=== PATIENT | female | born 1990 | race Caucasian/White ===

== ENCOUNTER 2017-03-29 23:50 | Inpatient (IN) | payer BC ==
[~2017-03-29] VITALS: Ht 154.9 cm; Wt 65.8 kg
[2017-03-30] MEDS ORDERED: LR 1,000 ML IV SCH (00:22)
[2017-03-30] MEDS ORDERED: LR 500 ML IV ONE (00:22)
[2017-03-30] MEDS ORDERED: LR 1,000 ML IV ONE ×2 (00:22→07:15)
[2017-03-30] MEDS ORDERED: OXYTOCIN/NORMAL SALINE 1,000 ML IV SCH (00:22)
[2017-03-30] MEDS ORDERED: NA PHOS,M-B/NA PHOS,DI-BA 118 ML (FLEET ENEMA) RC ONE (00:30)
[2017-03-30] MEDS ORDERED: TERBUTALINE SULFATE 1 MG/ML VIAL SUBCUT ONE (00:30)
[2017-03-30] MEDS ORDERED: NALBUPHINE HCL 10 MG/ML AMP IVP PRN ×2 (00:30→07:15)
[2017-03-30 00:59] LABS: BASOPHILS % (AUTO) 0.3 % (0.0-2.0); EOSINOPHILS # (AUTO) 0.1 K/uL (0.0-0.4); HEMATOCRIT 35.1 % (36-48); HEMOGLOBIN 12.2 g/dL (12.0-16.0); LYMPHOCYTES # (AUTO) 2.5 K/uL (1.0-5.5); LYMPHOCYTES % (AUTO) 27.1 % (20.5-51.5); MEAN CORPUSCULAR HEMOGLOBIN 31 pg (27-31); MEAN CORPUSCULAR HGB CONC 35 % (32-36); MEAN CORPUSCULAR VOLUME 90 fL (79.0-98.0); MONOCYTES # (AUTO) 0.9 K/uL (0.0-1.0); MONOCYTES % (AUTO) 9.6 % (1.7-9.3); NEUTROPHILS # (AUTO) 5.6 K/uL (1.8-7.7); PLATELET COUNT (AUTO) 282 K/uL (130-430); RED CELL DISTRIBUTION WIDTH 14.1 % (9.0-15.0); WHITE BLOOD COUNT (AUTO) 9.1 K/uL (4.8-10.8)
[2017-03-30] MEDS ORDERED: fentaNYL CITRATE/PF 100 MCG/2 ML AMP ONE (05:32)
[2017-03-30] MEDS ORDERED: fentaNYL CITRATE 250 MCG/5 ML AMP ONE (05:34)
[2017-03-30] MEDS ORDERED: FENT2mCg/mL-ROPIVA0.2%/NS EPID 150 ML EP ONE (05:38)
[2017-03-30] MEDS ORDERED: ePHEDrine sulfate 50 MG/ML VIAL IVP PRN (07:15)
[2017-03-30] MEDS ORDERED: KETOROLAC TROMETHAMINE 30 MG VIAL IM PRN (07:15)
[2017-03-30] MEDS ORDERED: ONDANSETRON HCL 4 MG/2 ML VIAL IVP PRN ×2 (07:15)
[2017-03-30] MEDS ORDERED: fentaNYL CITRATE/PF 100 MCG/2 ML AMP IVP PRN (07:15)
[2017-03-30] MEDS ORDERED: DIPHENHYDRAMINE INJ 50 MG/ML VIAL IVP PRN (07:15)
[2017-03-30] MEDS ORDERED: NALOXONE HCL 0.4 MG/ML AMP (NARCAN) IVP PRN (07:15)
[2017-03-30 08:24] VITALS: BP_SYST 102
[2017-03-30] MEDS ORDERED: METHYLERGONOVINE MALEATE 0.2 MG/ML AMP ONE (12:45)
[2017-03-30] MEDS ORDERED: OXYTOCIN/NORMAL SALINE 1,000 ML IV ONE (13:25)
[2017-03-30] MEDS ORDERED: GLYCERIN/WITCH HAZEL (TUCKS PADS) TP PRN (13:30)
[2017-03-30] MEDS ORDERED: SENNOSIDES/DOCUSATE SODIUM 1 TAB TABLET(SENOKOT-S) PO PRN (13:30)
[2017-03-30] MEDS ORDERED: ANUSOL 1 EA SUPP.RECT (PREPARATION H) RC PRN (13:30)
[2017-03-30] MEDS ORDERED: LANOLIN 7 GM OINT. TP PRN (13:30)
[2017-03-30] MEDS ORDERED: DOCUSATE SODIUM 100 MG CAPSULE PO PRN (13:30)
[2017-03-30] MEDS ORDERED: DERMOPLAST SPRAY TP PRN (13:30)
[2017-03-30] MEDS ORDERED: MEASLES,MUMPS&RUBELLA VACC/PF 12500 UNIT/0.5 ML VIAL SUBQ PRN (13:30)
[2017-03-30] MEDS ORDERED: OXYCODONE/ACETAMINOPHEN 5-325 TABLET PO PRN ×2 (13:30)
[2017-03-30] MEDS ORDERED: RHO(D) IMMUNE GLOBULIN/MALTOSE 1500 UNITS/1.3 ML (WINHRO) IM PRN (13:30)
[2017-03-30] MEDS ORDERED: HYDROCORTISONE 0.5%, 28.35 GM TOPICAL CREAM TP PRN (13:30)
[2017-03-30] MEDS ORDERED: ACETAMINOPHEN 325 MG TABLET PO PRN (13:30)
[2017-03-30] MEDS: IBUPROFEN 600 MG TABLET PO SCH ×2 (17:51→23:54)
[2017-03-31] MEDS: IBUPROFEN 600 MG TABLET PO SCH ×2 (06:01→12:00)
[2017-03-31 07:57] LABS: HEMATOCRIT 32.5 % (36-48); HEMOGLOBIN 10.5 g/dL (12.0-16.0)
== END 2017-03-31 13:25 | disposition home or self-care (01) | DRG 775 ==
LOC: SPU 23:50
PROVIDERS: ADMIT Obstetrics & Gynecology; ATTEND Obstetrics & Gynecology
PROC: 3E0234Z Introduction of Serum, Toxoid and Vaccine into Muscle, Percutaneous Approach (ICD-10-PCS; principal; 2017-03-30)
PROC: 10E0XZZ Delivery of Products of Conception, External Approach (ICD-10-PCS; 2017-03-30)
PROC: 4A0HXCZ Measurement of Products of Conception, Cardiac Rate, External Approach (ICD-10-PCS; 2017-03-30)
PROC: 3E0S3CZ (ICD-10-PCS; 2017-03-30)
PROC: 00HU33Z Insertion of Infusion Device into Spinal Canal, Percutaneous Approach (ICD-10-PCS; 2017-03-30)
DX: O69.81X0 Labor and delivery complicated by cord around neck, without compression, not applicable or unspecified (principal); O77.0 Labor and delivery complicated by meconium in amniotic fluid; Z3A.40 40 weeks gestation of pregnancy; Z37.0 Single live birth; Z23 Encounter for immunization
CPT/HCPCS: 36415; 81002-TC; 85018-TC; 85025; 86592; 86886; 86900; 86901; C1751; J2210; J2590; J3010